=== PATIENT | male | born 1995 | race Caucasian/White ===

== ENCOUNTER 2017-05-30 15:06 | Emergency (ER) | payer OTHER ==
--- NOTE | 2017-05-30 15:17 | ER Report ---
History and Physical Time Seen By MD: 15:17 Hx. of Stated Complaint: patient was involved in a snowboarding accident. he is reporting right shoulder pain HPI/ROS CHIEF COMPLAINT: Right shoulder injury HISTORY OF PRESENT ILLNESS: This is a 21-year-old male who presents to the emergency department for a right shoulder injury. Patient states that he was snowboarding today came off a jump about 3 feet in the air landed on his right shoulder hit the right side of his head no LOC did get up shortly after that and noted he had some right shoulder pain. Patient did go to the [facility] and they were concerned about a possible clavicle fracture and sent him to the emergency department for further evaluation. Patient denies taking any medications prior to arrival. Patient states that he can move his arm but he does have pain to the right shoulder but there is no obvious deformity, CMS intact distal to the injury. Patient denies aches, chills, nausea, vomiting, diarrhea. REVIEW OF SYSTEMS: Respiratory: No cough, no dyspnea. Cardiovascular: No chest pain, no palpitations. Gastrointestinal: No vomiting, no abdominal pain. Musculoskeletal: As above. Allergies: Coded Allergies: No Known Drug Allergies (Unverified , 05/30/17) Home Meds No Active Prescriptions or Reported Meds Past Medical/Surgical History Patient has no significant past medical or surgical history. Reviewed Nurses Notes: Yes Hx Substance Use Disorder: No Hx Alcohol Use: No Constitutional Vital Sign - Last 24 Hours 05/30/17 05/30/17 15:12 16:16 Temp 98.6 Pulse 68 67 Resp 16 20 B/P (MAP) 137/79 128/73 (91) Pulse Ox 94 96 O2 Delivery Room Air Room Air Physical Exam General Appearance: The patient is alert, has no immediate need for airway protection and no current signs of toxicity. Eyes: Pupils equal and round no injection. Respiratory: Chest is non tender, lungs are clear to auscultation. Cardiac: regular rate and rhythm. Gastrointestinal: Abdomen is soft and non tender, no masses, bowel sounds normal. Musculoskeletal: Neck: Neck is supple and non tender. Extremities pain to the right distal clavicle, the superior shoulder. No humerus pain or scapular pain. No obvious deformities or crepitations noted. Emesis intact distal to the injury. Skin: No rashes or lesions. DIFFERENTIAL DIAGNOSIS: After history and physical exam differential diagnosis was considered for contusion, clavicle fracture, shoulder fracture, shoulder separation and dislocation. Medical Decision Making EKG/Imaging Imaging INDICATION: Trauma DATE: 05/30/2017 3:18 PM TECHNIQUE: SHOULDER MIN 2 VIEWS RIGHT COMPARISON: None FINDINGS: The humeral head articulates normally with the glenoid. The coraco- and acromioclavicular distances are normal. No evidence of fracture or dislocation. IMPRESSION: Radiographically normal. Report Dictated By: Mihcelle Durham MD at 05/30/2017 3:51 PM Report E-Signed By: Michelle Durham MD at 05/30/2017 3:52 PM WSN:[id number] Technique: CLAVICLE RIGHT HISTORY: Fall, pain Comparison studies: None FINDINGS: There is no acute fracture. The alignment of the right clavicle is maintained. Soft tissues are unremarkable. IMPRESSION: 1. No acute osseous process. Report Dictated By: Reji Balderas DO at 05/30/2017 3:43 PM Report E-Signed By: Reji Balderas DO at 05/30/2017 3:45 PM WSN:[id number] ED Course/Re-evaluation ED Course The patient was admitted to room. A history and physical were obtained. Differential diagnoses were considered. A right shoulder and right clavicle x- ray were obtained. No acute findings on the x-rays. I did review these results with the patient and told him that this is a contusion. I did tell him however if the pain is persistent in 7-14 days then he should follow up with orthopedics for a possible repeat x-ray of the shoulder. The patient expressed understanding. Patient was also instructed to take ibuprofen or Tylenol as needed for the pain. Patient had no other questions or concerns at this time and was discharged home. Decision to Disposition Date: May 30, 2017 Decision to Disposition Time: 16:01 Depart Departure Latest Vital Signs Vital Signs Date Time Temp Pulse Resp B/P (MAP) Pulse Ox O2 Delivery O2 Flow Rate FiO2 05/30/17 16:16 67 20 128/73 (91) 96 Room Air 05/30/17 15:12 98.6 Impression: Primary Impression: Contusion of right shoulder Additional Impression: Snowboarding accident Condition: Improved Disposition: HOME OR SELF-CARE New Scripts No Active Prescriptions or Reported Meds Patient Instructions: Contusion in Adults (ED) Additional Instructions: Drink plenty of fluids. Get plenty of rest. Take Ibuprofen or Tylenol as needed for pain. If no improvement in 7-14 days follow up with [facility]. May return to the ED for any other concerns or worsening symptoms. Problem Qualifiers Primary Impression: Contusion of right shoulder Encounter type: initial encounter Qualified Codes: S40.011A - Contusion of right shoulder, initial encounter Additional Impression: Snowboarding accident Encounter type: initial encounter Qualified Codes: V00.318A - Other snowboard accident, initial encounter KINGS AKERS-ELIZABETH May 30, 2017 15:17
--- NOTE | 2017-05-30 15:51 | RADIOLOGY IMAGING REPORT ---
FACILITY: [facility] [place] PATIENT NAME: Reinier Medeiros : 1995 MR: [id number] V: [id number] EXAM DATE: ORDERING PHYSICIAN: KINGS AKERS TECHNOLOGIST: Location: [facility] [place] Patient: Reinier Medeiros : 1995 Visit/Account:[id number] Date of Sevice: 05/30/2017 Technique: CLAVICLE RIGHT HISTORY: Fall, pain Comparison studies: None FINDINGS: There is no acute fracture. The alignment of the right clavicle is maintained. Soft tissu es are unremarkable. IMPRESSION: 1. No acute osseous process. Report Dictated By: Reji Balderas DO at 05/30/2017 3:43 PM Report E-Signed By: Reji Balderas DO at 05/30/2017 3:45 PM WSN:[id number]
--- NOTE | 2017-05-30 15:56 | RADIOLOGY IMAGING REPORT ---
FACILITY: [facility] - [place] PATIENT NAME: Reinier Medeiros : 1995 MR: [id number] V: [id number] EXAM DATE: ORDERING PHYSICIAN: KINGS AKERS TECHNOLOGIST: Location: [facility] Patient: Reinier Medeiros : 1995 Visit/Account:[id number] Date of Sevice: 05/30/2017 INDICATION: Trauma DATE: 05/30/2017 3:18 PM TECHNIQUE: SHOULDER MIN 2 VIEWS RIGHT COMPARISON: None FINDINGS: The humeral head articulates normally with the glenoid. The coraco- and acromioclavicular distances are normal. No evidence of fracture or dislocation. IMPRESSION: Radiographically normal. Report Dictated By: Michelle Durham MD at 05/30/2017 3:51 PM Report E-Signed By: Michelle Durham MD at 05/30/2017 3:52 PM WSN:[id number]
[2017-05-30 16:16] VITALS: BP 128/73
== END 2017-05-30 16:18 | disposition home or self-care (01) ==
LOC: ER 15:12
DX: S40.011A Contusion of right shoulder, initial encounter (principal); Y93.23 Activity, snow (alpine) (downhill) skiing, snowboarding, sledding, tobogganing and snow tubing
CPT/HCPCS: 73000; 73030; 99283; A4565